=== PATIENT | male | born 1985 | race Two or more races ===

== ENCOUNTER 2024-04-19 13:28 | Emergency (ER) | payer BC ==
[2024-04-19 13:35] VITALS: TEMP 98.1; BMI 29.7
[2024-04-19 14:32] VITALS: BP 131/72; PULSE 64; RESP 18
[2024-04-19] MEDS ORDERED: SULFAMETHOXAZOLE/TRIMETHOPRIM 800MG/160MG D.S. TABLET ONE (14:49)
[2024-04-19] MEDS: SULFAMETHOXAZOLE/TRIMETHOPRIM 800MG/160MG D.S. TABLET PO ONE (14:51)
== END 2024-04-19 15:07 | disposition home or self-care (01) ==
LOC: JER 13:28 → JERFT 13:28 → JER 15:07
PROC: 0H9GXZZ Drainage of Left Hand Skin, External Approach (ICD-10-PCS; principal; 2024-04-19)
DX: L03.012 Cellulitis of left finger (principal); R55 Syncope and collapse
CPT/HCPCS: 82962; 99283-25